=== PATIENT | female | born 2000 | race Caucasian/White ===

== ENCOUNTER 2020-08-24 11:45 | Outpatient (CLI) | payer BC, SELFPAY ==
[2020-08-25] LABS: SARS-CoV-2 RNA PCR Negative
== END 2020-08-24 11:46 | disposition home or self-care (01) ==
LOC: CHSLAB 11:51
PROVIDERS: PCP Internal Medicine; Visit Provider Internal Medicine
DX: Z20.822 Contact with and (suspected) exposure to COVID-19 (principal)
CPT/HCPCS: C9803; U0003; U0005